=== PATIENT | female | born 1960 ===

== ENCOUNTER 2018-05-04 14:23 | Outpatient (CLI) | payer OTHER | END 2018-05-04 14:38 | disposition home or self-care (01) | LOC: MAMO-SONO 14:23 | DX: Z12.31 Encounter for screening mammogram for malignant neoplasm of breast (principal); N64.89 Other specified disorders of breast; R10.2 Pelvic and perineal pain ==

== ENCOUNTER 2020-05-17 13:29 | Outpatient (CLI) | payer OTHER | END 2020-05-17 14:00 | disposition home or self-care (01) | LOC: MAMO-SONO 13:29 | PROVIDERS: ATTEND Specialist | DX: R92.2 Inconclusive mammogram (principal) ==

== ENCOUNTER → 2020-05-21 10:23 | Outpatient (CLI) | payer OTHER | END | disposition home or self-care (01) | LOC: LAB 10:23 | PROVIDERS: ATTEND Specialist | DX: M54.5 Low back pain (principal); Z13.220 Encounter for screening for lipoid disorders; Z13.1 Encounter for screening for diabetes mellitus; Z12.11 Encounter for screening for malignant neoplasm of colon ==

== ENCOUNTER → 2020-05-22 13:34 | Outpatient (CLI) | payer OTHER | END | disposition home or self-care (01) | LOC: LAB 13:34 | PROVIDERS: ATTEND Specialist | DX: Z13.220 Encounter for screening for lipoid disorders (principal); Z13.1 Encounter for screening for diabetes mellitus; Z12.11 Encounter for screening for malignant neoplasm of colon; M54.5 Low back pain ==

== ENCOUNTER 2020-06-25 12:43 | Outpatient (CLI) | payer OTHER | END 2020-06-25 12:56 | disposition home or self-care (01) | LOC: RAD 12:43 → MAMO-SONO 13:15 | PROVIDERS: ATTEND Specialist | DX: E04.2 Nontoxic multinodular goiter (principal); N28.89 Other specified disorders of kidney and ureter; R05 Cough; R31.29 Other microscopic hematuria; E78.2 Mixed hyperlipidemia; R06.09 Other forms of dyspnea; Z12.11 Encounter for screening for malignant neoplasm of colon ==

== ENCOUNTER 2021-01-22 09:19 | Outpatient (CLI) | payer OTHER | END 2021-01-22 14:27 | disposition home or self-care (01) | LOC: LAB 09:19 | PROVIDERS: ATTEND Specialist | DX: E04.1 Nontoxic single thyroid nodule (principal); R10.84 Generalized abdominal pain ==

== ENCOUNTER 2021-01-23 10:24 | Outpatient (CLI) | payer OTHER | END 2021-01-23 10:39 | disposition home or self-care (01) | LOC: TOM 10:24 | PROVIDERS: ATTEND Specialist | DX: K40.20 Bilateral inguinal hernia, without obstruction or gangrene, not specified as recurrent (principal); R10.84 Generalized abdominal pain ==

== ENCOUNTER 2021-04-18 08:20 | Outpatient (CLI) | payer OTHER | END 2021-04-18 08:32 | disposition home or self-care (01) | LOC: SONOGRAMA 08:20 → MAMO-SONO 08:45 | PROVIDERS: ATTEND Specialist | DX: K82.8 Other specified diseases of gallbladder (principal) ==

== ENCOUNTER → 2021-04-18 09:23 | Outpatient (CLI) | payer OTHER | END | disposition home or self-care (01) | LOC: LAB 09:23 | PROVIDERS: ATTEND Specialist | DX: K82.8 Other specified diseases of gallbladder (principal) ==

== ENCOUNTER 2021-05-09 09:07 | Outpatient (CLI) | payer OTHER ==
[2021-05-20] MEDS ORDERED: COZAAR100 MG (10:16)
== END 2021-05-09 09:23 | disposition home or self-care (01) ==
LOC: MRI 09:07
PROVIDERS: ATTEND Specialist
DX: K80.50 Calculus of bile duct without cholangitis or cholecystitis without obstruction (principal); K82.8 Other specified diseases of gallbladder
CPT/HCPCS: 74181

== ENCOUNTER 2021-05-27 05:20 | Day surgery (SDC) | payer OTHER ==
[~2021-05-27 05:20] MED LIST: COZAAR100 MG
== END 2021-05-27 19:10 | disposition home or self-care (01) ==
LOC: CIR.AMB 05:20
PROVIDERS: ATTEND Specialist
DX: K80.10 Calculus of gallbladder with chronic cholecystitis without obstruction (principal); Z20.822 Contact with and (suspected) exposure to COVID-19

== ENCOUNTER 2021-06-18 10:50 | Outpatient (CLI) | payer OTHER | END 2021-06-18 10:57 | disposition home or self-care (01) | LOC: MAMO-SONO 10:50 | PROVIDERS: ATTEND Specialist | DX: Z12.31 Encounter for screening mammogram for malignant neoplasm of breast (principal) ==

== ENCOUNTER 2021-10-17 13:26 | Outpatient (CLI) | payer OTHER | END 2021-10-17 13:39 | disposition home or self-care (01) | LOC: SONOGRAMA 13:26 | PROVIDERS: ATTEND Specialist | DX: E04.1 Nontoxic single thyroid nodule (principal) ==

== ENCOUNTER 2022-06-23 09:08 | Outpatient (CLI) | payer OTHER ==
[~2022-06-23 09:08] MED LIST changes: +NABUMETONE500 MG PO; +PREGABALIN25 MG PO; +VOLTAREN ARTHRI20 GM TOP
== END 2022-06-23 09:27 | disposition home or self-care (01) ==
LOC: MAMO-SONO 09:08
PROVIDERS: ATTEND Specialist
DX: Z12.31 Encounter for screening mammogram for malignant neoplasm of breast (principal); N63.0 Unspecified lump in unspecified breast

== ENCOUNTER 2022-12-03 10:42 | Outpatient (CLI) | payer OTHER | END 2022-12-03 10:53 | disposition home or self-care (01) | LOC: MAMO-SONO 10:42 | PROVIDERS: ATTEND Specialist | DX: N63.11 Unspecified lump in the right breast, upper outer quadrant (principal); Z12.31 Encounter for screening mammogram for malignant neoplasm of breast ==

== ENCOUNTER 2023-06-23 11:14 | Outpatient (CLI) | payer OTHER | END 2023-06-23 11:25 | disposition home or self-care (01) | LOC: SONOGRAMA 11:14 | PROVIDERS: ATTEND Specialist | DX: R10.2 Pelvic and perineal pain (principal) ==

== ENCOUNTER 2024-05-18 10:10 | Outpatient (CLI) | payer OTHER | END 2024-05-18 10:21 | disposition home or self-care (01) | LOC: MAMO-SONO 10:10 | PROVIDERS: ATTEND Specialist | DX: N63.0 Unspecified lump in unspecified breast (principal); Z12.31 Encounter for screening mammogram for malignant neoplasm of breast ==

== ENCOUNTER 2025-04-10 13:15 | Outpatient (CLI) | payer OTHER ==
[2025-04-10 14:31] LABS: ob NEGATIVE (NEGATIVE)
== END 2025-04-10 13:21 | disposition home or self-care (01) ==
LOC: LAB 13:15
PROVIDERS: ATTEND Specialist
DX: M54.31 Sciatica, right side (principal); Z12.31 Encounter for screening mammogram for malignant neoplasm of breast; Z12.11 Encounter for screening for malignant neoplasm of colon; I10 Essential (primary) hypertension

== ENCOUNTER 2025-05-21 12:50 | Outpatient (CLI) | payer OTHER | END 2025-05-21 13:04 | disposition home or self-care (01) | LOC: MAMO-SONO 12:50 | PROVIDERS: ATTEND Specialist | DX: N63.0 Unspecified lump in unspecified breast (principal); Z12.31 Encounter for screening mammogram for malignant neoplasm of breast ==